=== PATIENT | male | born 1990 | race African-American/Black ===

== ENCOUNTER 2023-10-17 08:00 | Emergency (ER) | payer OTHER ==
[2023-10-17 08:11] VITALS: BP 128/77; PULSE 65; RESP 18; TEMP 97.5; BMI 31.4
[2023-10-17 09:23] LABS: PH,URINE 6.5 (5.0-8.0); URINE APPEARANCE CLEAR; URINE BILIRUBIN NEGATIVE (NEGATIVE); URINE COLOR YELLOW; URINE GLUCOSE (UA) NEGATIVE (NEGATIVE); URINE KETONE NEGATIVE (NEGATIVE); URINE LEUK ESTERASE NEGATIVE (NEGATIVE); URINE NITRITE NEGATIVE (NEGATIVE); URINE PROTEIN NEGATIVE (NEGATIVE); URINE UROBILINOGEN 0.2 mg/dL (0.2-1.0)
[2023-10-17 09:24] LABS: BASO % 0.4 % (0-2.0); HEMATOCRIT 43.2 % (35.4-49); HEMOGLOBIN 15.1 GM/dL (11.7-16.9); LYMPH % 40.3 % (8-40); MCH 30.6 pg (25.7-33.7); MCHC 34.9 g/dl (32.0-35.9); MEAN CELL VOLUME 87.7 fl (80-96); MEAN PLT VOLUME 7.8 fl (7.5-11.1); MONO % 9.1 % (3.8-10.2); NEUT % 47.2 % (42.8-82.8); PLATELET COUNT 289 10^3/uL (134-434); RBC 4.93 M/mm3 (4.00-5.60); RDW 13.1 % (11.9-15.9); WHITE BLOOD COUNT 6.5 K/mm3 (4.0-10.0)
[2023-10-17 09:47] LABS: POTASSIUM 3.9 mmol/L (3.5-5.1)
[2023-10-17 09:49] LABS: CALCIUM 8.8 mg/dL (8.5-10.1)
[2023-10-17 09:50] LABS: ALBUMIN 3.8 g/dl (3.4-5.0); BLOOD UREA NITROGEN 13.7 mg/dL (7-18)
[2023-10-17 09:53] LABS: CREATININE 1.1 mg/dL (0.55-1.3)
[2023-10-17 09:54] LABS: BILIRUBIN,TOTAL 0.5 mg/dL (0.2-1)
== END 2023-10-17 11:51 | disposition home or self-care (01) ==
LOC: JER 08:00
DX: R10.84 Generalized abdominal pain (principal); R35.0 Frequency of micturition; K59.00 Constipation, unspecified
CPT/HCPCS: 36415; 74018-TC-FY; 80053; 81003; 85025; 87086; 99284-25